=== PATIENT | male | born 1980 | race Hispanic/Latino ===

== ENCOUNTER 2023-04-02 11:20 | Inpatient (IN) | payer MEDICAID, SELFPAY ==
[2023-04-02] VITALS (21 sets, daily range): BP systolic 102–139; BP diastolic 67–88; PULSE 102–144; RESP 16–30; TEMP 36.1–39.5; O2SAT 82–100
--- NOTE | ~2023-04-02 | CT_ITS ---
Non-contrast CT scan of the Abdomen and Pelvis Clinical indication: Right flank pain Technique: 2.5 mm axial scans were obtained through the abdomen and pelvis without intravenous or or al contrast. Dose reduction technique was used on this scan by utilizing automated exposure control a nd iterative reconstruction technique. The dose-length product (DLP) was 620.95 mGy-cm. Findings: Images through the lung bases reveal no abnormalities. There is no evidence of renal or ureteral calculi. No hydronephrosis. Left ureteral stent in place, w ith mild fullness of left ureter. The liver, spleen, pancreas, gallbladder, and adrenals appear normal. There is no aortic aneurysm. There is no evidence of bowel obstruction. Images through the pelvis were performed. There is no evidence of ascites or lymphadenopathy. Mild ur inary bladder wall thickening present. Prostate gland is mildly enlarged. Impression: Left ureteral stent in place with mild fullness of left ureter. No radiopaque stones seen. Urinary bladder wall thickening, possibly cystitis. Correlate with urinalysis. Reviewed, dictated and finalized at [facility]. Impression: Left ureteral stent in place with mild fullness of left ureter. No radiopaque s tones seen. Urinary bladder wall thickening, possibly cystitis. Correlate with urinalysis.
[2023-04-02 12:50] LABS: Basophils Absolute Auto 0.1 K/mm3 (0.0-0.1); Basophils Percent Auto 0.3 % (0.2-1.2); Eosinophils Percent Auto 0.1 % (0-4.4); Hematocrit 45.2 % (42.0-52.0); Hemoglobin 15.5 g/dL (14.0-18.0); Immature Granulocyte Absolute 0.07 K/mm3 (0.00-0.031); Immature Granulocyte Percent A 0.4 % (0-0.5); Lymphocytes Absolute Auto 1.41 K/mm3 (0.9-3.2); Lymphocytes Percent Auto 8.6 % (18.3-44.2); Mean Corpuscular HGB Conc 34.3 g/dl (32-36); Mean Corpuscular Hemoglobin 31.8 pg (26-34); Mean Corpuscular Volume 92.6 fl (80-100); Mean Platelet Volume 9.6 fl (7.4-10.4); Monocytes Absolute Auto 0.8 K/mm3 (0.1-0.6); Monocytes Percent Auto 4.9 % (2.6-8.5); Neutrophils Absolute Auto 14.1 K/mm3 (1.3-6.7); Neutrophils Percent Auto 85.7 % (45.5-73.1); Platelet Count Result 285 k/mm3 (150-375); Red Blood Count 4.88 M/mm3 (4.6-6.20); Red Cell Distribution Width 11.3 % (11.5-14.5); White Blood Count 16.4 K/mm3 (4.5-10.0)
[2023-04-02] MEDS: SODIUM CHLORIDE 0.9% IV 1,000 ML 999 ML IV CONT (12:52)
[2023-04-02] MEDS: ONDANSETRON INJ 4 MG/2 ML VIAL IV PUSH (12:54)
[2023-04-02] MEDS: fentaNYL CITRATE INJ (*CRX) 100 MCG/2 ML VIAL 50 MCG IV PUSH (12:54)
[2023-04-02 12:59] LABS: Prothrombin Time 13.7 Seconds (11.1-14.7)
[2023-04-02 13:00] LABS: Partial Thromboplastin Time 28.6 SECONDS (22.3-36.8)
--- NOTE | 2023-04-02 13:05 | ED.ABDPAIN ---
HPI - Abdominal Pain General Chief Complaint: Recheck/Abnormal Lab/Rx Stated Complaint: post op comp Time Seen by Provider: 04/02/23 12:10 History of Present Illness HPI narrative: Pt had kidney stone and stent placement at [facility] about 10 days ago. Pt says he is out of antibiotics and pain meds and is having more pain in right flank and is running a fever now and has blood in urine. Pt is nauseated but not vomiting. Related Data Home Medications Medication Instructions Recorded Confirmed metformin 500 mg tablet 500 mg PO BID 04/02/23 04/02/23 Allergies Allergy/AdvReac Type Severity Reaction Status Date / Time No Known Allergies Allergy Verified 04/02/23 16:52 Review of Systems Review of Systems: All systems reviewed & are unremarkable except as noted in HPI and below PMFSH Family History Family History (Updated 04/02/23 @ 17:05 by Jaelyn Contreras RN) Other Unknown family medical history Social History Social History Smoking status: Never smoker Alcohol intake: current Drinks per week: 4 Substance use: never Substance use type: does not use Lack of Transportation: No Lack of Food: Never True Current Housing: I Have Housing Concerned About Future Housing: No Difficulty Paying Gas/Electric Bills: No Difficulty Paying for Meds: No Currently Unemployed: No Education: Associate Degree Difficulty w/ Childcare or Family Care: No Spiritual care concerns: No Exam Const: General: healthy appearing Nutritional Appearance: well nourished Orientation/consciousness: patient oriented x3 Limitations: no limitations HENMT: Head: normal to inspection Mouth: Yes moist mucous membranes Resp: Effort & Inspection: normal respiratory effort Auscultation: clear to auscultation bilaterally Cardio: Rate: regular rate Rhythm: regular rhythm GI: GI Palp: Yes Soft to palpation and Yes Tenderness to palpation present (GI) (r cva) Auscultation: normal bowel sounds : General: Yes CVA tenderness Back/Spine/Pelvis: Back: CVA tenderness Skin: General skin exam: normal color Rashes: no rashes Wounds: no wounds Neuro: General: patient oriented x3, moves all extremities, no meningeal signs, no focal motor deficits and CN's II-XI intact bilaterally Cranial nerves: Yes Nystagmus not present Speech: normal speech Extrem: General: normal to inspection and no clubbing, cyanosis or edema Psych: Mental Status: mental status grossly normal Affect: normal affect Attitude: cooperative Course Vital Signs Vital signs: Vital Signs Temperature 97.4 F L 04/02/23 11:21 Pulse Rate 102 H 04/02/23 11:21 Respiratory Rate 18 04/02/23 11:21 Blood Pressure 124/75 04/02/23 11:21 Pulse Oximetry 98 04/02/23 11:21 Temperature 103.1 F H 04/02/23 16:40 Pulse Rate 144 H 04/02/23 17:08 Respiratory Rate 22 H 04/02/23 16:40 Blood Pressure 102/67 04/02/23 16:40 Pulse Oximetry 96 04/02/23 16:40 Oxygen Delivery Room Air 04/02/23 17:03 MDM - Abdominal Pain MDM Narrative Medical decision making narrative: Pt had stent placed for stone in [facility] 10 days ago. Pt finished antibiotics and pain meds and last night developed flank pain again and fever and chills, WBC elevated UTI on UA, stent in place on CT. Discussed with Fabi Taylor and agrees to consult if needed. discussed with Ora Wagner agrees to admit Lab Data 04/02/23 12:40 04/02/23 12:40 Labs: Lab Results 04/02/23 04/02/23 Range/Units 12:40 13:01 WBC 16.4 H (4.5-10.0) K/mm3 RBC 4.88 (4.6-6.20) M/mm3 Hgb 15.5 (14.0-18.0) g/dL Hct 45.2 (42.0-52.0) % MCV 92.6 (80-100) fl MCH 31.8 (26-34) pg MCHC 34.3 (32-36) g/dl RDW 11.3 L (11.5-14.5) % Plt Count 285 (150-375) k/mm3 MPV 9.6 (7.4-10.4) fl Immature Gran % (Auto) 0.4 (0-0.5) % Neut % (Auto) 85.7 H (45.5-73.1) % Lymph % (Auto) 8.6 L (18.3-44.2) % Chambers
[2023-04-02 13:06] LABS: Lactic Acid Reflex 2.8 mmol/L (0.7-2.0)
[2023-04-02 13:07] LABS: Alanine Aminotransferase 45 U/L (6-50); Albumin Level 4.7 g/dL (3.5-5.1); Alkaline Phosphatase 88 U/L (38-126); Anion Gap 11 mmol/L (8-16); Aspartate Amino Transferase 31 U/L (17-59); Bilirubin,Total 1.4 mg/dL (0.2-1.3); Blood Urea Nitrogen 14 mg/dL (9-20); Calcium 9.3 mg/dL (8.4-10.2); Carbon Dioxide 27 mmol/L (22-30); Chloride 97 mmol/L (98-107); Estimated CRCL calculation 96 ml/min; Estimated Glomerular Filt Rate > 60; Glucose 124 mg/dL (65-110); Potassium 3.9 mmol/L (3.4-5.0); Sodium 135 mmol/L (137-145)
[2023-04-02] MEDS: cefTRIAXone 2 GM/NS 100 ML 2 GM/100 ML BAG IVPB (13:24)
[2023-04-02 13:29] LABS: Appearance Urine Turbid (Clear); Bacteria Urine 4+ /hpf; Bilirubin Urine Negative (Negative); Blood Urine 3+ (Negative); Color Urine Dark Yellow (Yellow); Glucose Urine UA Negative (Negative); Ketones Urine Negative (Negative); Leukocyte Esterase Ur 3+ LEU/UL (Negative); Need Manual Microscopic Reviewed; Nitrate Urine Positive (Negative); Protein Urine 3+ mg/dL (Negative); RBC Urine >100 /hpf (0-2); Specific Grav Ur 1.022 (1.001-1.035); Squamous Epithelial Cell Urine None seen /hpf (Few); WBC Urine >100 /hpf; pH Urine 5.5 (5.0-9.0)
[2023-04-02 13:30] LABS: Add Urine Microscopic? YES
[2023-04-02] MEDS: SODIUM CHLORIDE 0.9% IV 2,800 ML/1,000 ML BAG 999 ML IV CONT ×2 (13:57→16:00)
[2023-04-02 14:09] LABS: CRP 7.6 mg/dL (<1.0)
[2023-04-02 15:45] LABS: Reflex Lactic Acid Yes or No Add Lactic
[2023-04-02] MEDS: ACETAMINOPHEN 500 MG TABLET 1000 MG PO (16:39)
--- NOTE | 2023-04-02 16:49 | ADMGEN ---
This patient, Demond Agee, was admitted to 3 [facility] Surg Room 312-01. Patient/family oriented to hospital policies and general routines including ID bracelet, bed and alarms, visiting hours, pain management, procedures, bathroom and other care routines, personal items, smoking policy, room service/diet, and visiting hours. Information on how to activate the Rapid Response Team has been discussed. Patient/Family are encouraged to report perceived risks to care and to ask questions if they do not understand what they are told or what they should do.
[2023-04-02 18:00] LABS: Lactic Acid 2.8 mmol/L (0.7-2.0)
[2023-04-02] MEDS: LACTATED RINGERS 1,000 ML 100 ML IV CONT (20:38)
[2023-04-02 21:42] LABS: Lactic Acid Reflex 2.4 mmol/L (0.7-2.0)
[2023-04-02 22:47] LABS: Hemoglobin A1C 6.5 % (<5.7)
[2023-04-03] VITALS (9 sets, daily range): BP systolic 101–118; BP diastolic 63–73; PULSE 79–112; RESP 14–20; TEMP 36.2–37.9; O2SAT 96–99
--- NOTE | 2023-04-03 | PM.IMHP ---
H&P: HPI History of Present Illness Date/Time: 04/03/23 00:00 Chief Complaint: Dysuria Narrative: 42 y/o M presents here with dysuria, hematuria, flank pain, and fever with PMH of recent renal calculi removal with stent placement 10 days ago, DM and HLD. Patient presents here with flank pain, fever, nausea, and dysuria starting last night. Recent renal calculi removal with subsequent stent placement at [facility] in [facility] 10 days ago. Since procedure patient has continued to have painless hematuria until last night. Endorses fatigue and lower abdominal pain when it is pressed. Denies diarrhea. Review of Systems Review of Systems: All systems reviewed & are unremarkable except as noted in HPI and below PMFSH Past Medical History Medical History (Updated 04/03/23 @ 00:08 by Ora Wagner APRN) History of renal stone HLD (hyperlipidemia) HTN (hypertension) Surgical History Surgical History (Updated 04/03/23 @ 00:08 by Ora Wagner APRN) History of renal stent Family History Family History (Updated 04/03/23 @ 00:09 by Ora Wagner APRN) Father Cancer of kidney Diabetes mellitus Mother Diabetes mellitus Social History Social History (Updated 04/03/23 @ 00:09 by Ora Wagner APRN) Social History: Surrogate decision maker: Crystal Cook, . Smoking status: Never smoker Alcohol intake: current Drinks per week: 4 Substance use: never Substance use type: does not use Lack of Transportation: No Lack of Food: Never True Current Housing: I Have Housing Concerned About Future Housing: No Difficulty Paying Gas/Electric Bills: No Difficulty Paying for Meds: No Currently Unemployed: No Education: Associate Degree Difficulty w/ Childcare or Family Care: No Spiritual care concerns: No Meds Home Medications and Allergies Home Medications Medication Instructions Recorded Confirmed Type metformin 500 mg tablet 500 mg PO BID 04/02/23 04/02/23 History Allergies Allergy/AdvReac Type Severity Reaction Status Date / Time No Known Allergies Allergy Verified 04/02/23 16:52 Vital Signs Vital Signs - 24 hr 04/02/23 11:21 04/02/23 12:28 04/02/23 12:29 Temperature 97.4 F L Pulse Rate 102 H 120 H 119 H Respiratory Rate 18 16 20 Blood Pressure 124/75 118/79 Pulse Oximetry 98 99 100 Oxygen Delivery 04/02/23 12:30 04/02/23 12:32 04/02/23 12:45 Temperature Pulse Rate 114 H 118 H 123 H Respiratory Rate 16 25 H 25 H Blood Pressure 128/84 Pulse Oximetry 99 99 98 Oxygen Delivery 04/02/23 12:47 04/02/23 13:11 04/02/23 13:12 Temperature Pulse Rate 119 H 124 H 124 H Respiratory Rate 24 H 19 28 H Blood Pressure 130/81 138/81 Pulse Oximetry 97 82 L 98 Oxygen Delivery 04/02/23 13:15 04/02/23 13:16 04/02/23 16:40 Temperature 103.1 F H Pulse Rate 127 H 128 H 135 H Respiratory Rate 25 H 27 H 22 H Blood Pressure 128/88 102/67 Pulse Oximetry 94 94 96 Oxygen Delivery 04/02/23 13:31 04/02/23 14:01 04/02/23 14:16 Temperature Pulse Rate 131 H 130 H 129 H Respiratory Rate 28 H 20 22 H Blood Pressure 139/84 133/74 112/74 Pulse Oximetry 94 96 95 Oxygen Delivery 04/02/23 14:31 04/02/23 14:46 04/02/23 16:31 Temperature 103.1 F H Pulse Rate 130 H 128 H 136 H Respiratory Rate 25 H 30 H 23 H Blood Pressure 119/74 119/82 102/67 Pulse Oximetry 98 97 98 Oxygen Delivery 04/02/23 17:03 04/02/23 17:08 04/02/23 20:38 Temperature Pulse Rate 144 H 109 H Respiratory Rate Blood Pressure Pulse Oximetry Oxygen Delivery Room Air 04/02/23 21:16 Temperature 96.9 F L Pulse Rate 108 H Respiratory Rate 16 Blood Pressure 102/73 Pulse Oximetry 97 Oxygen Delivery Exam Const: General: comfortable and no acute distress HENMT: Face/Nose/Sinus: Normal nares present Mouth: Yes moist mucous membranes Eyes: General: appearance normal, both eyes and al
[2023-04-03] MEDS: ACETAMINOPHEN 325 MG TABLET 650 MG PO ×3 (00:46→17:23)
[2023-04-03] MEDS: LACTATED RINGERS 1,000 ML 100 ML IV CONT ×2 (06:33→20:14)
[2023-04-03 06:52] LABS: Basophils Absolute Auto 0.1 K/mm3 (0.0-0.1); Basophils Percent Auto 0.4 % (0.2-1.2); Eosinophils Absolute Auto 0.1 K/mm3 (0-0.3); Eosinophils Percent Auto 0.7 % (0-4.4); Hemoglobin 12.8 g/dL (14.0-18.0); Immature Granulocyte Absolute 0.06 K/mm3 (0.00-0.031); Immature Granulocyte Percent A 0.4 % (0-0.5); Lymphocytes Percent Auto 10.5 % (18.3-44.2); Mean Corpuscular HGB Conc 33.7 g/dl (32-36); Mean Corpuscular Hemoglobin 31.5 pg (26-34); Mean Corpuscular Volume 93.6 fl (80-100); Mean Platelet Volume 9.6 fl (7.4-10.4); Neutrophils Absolute Auto 11.6 K/mm3 (1.3-6.7); Platelet Count Result 230 k/mm3 (150-375); Red Blood Count 4.06 M/mm3 (4.6-6.20); Red Cell Distribution Width 11.5 % (11.5-14.5); White Blood Count 14.3 K/mm3 (4.5-10.0)
[2023-04-03 06:59] LABS: Lactic Acid Reflex 1.4 mmol/L (0.7-2.0)
[2023-04-03 07:05] LABS: Alanine Aminotransferase 34 U/L (6-50); Albumin Level 3.5 g/dL (3.5-5.1); Alkaline Phosphatase 63 U/L (38-126); Anion Gap 5 mmol/L (8-16); Aspartate Amino Transferase 23 U/L (17-59); Blood Urea Nitrogen 10 mg/dL (9-20); Calcium 8.6 mg/dL (8.4-10.2); Carbon Dioxide 27 mmol/L (22-30); Chloride 106 mmol/L (98-107); Estimated CRCL calculation 118 ml/min; Estimated Glomerular Filt Rate > 60; Glucose 136 mg/dL (65-110); Potassium 3.4 mmol/L (3.4-5.0); Sodium 138 mmol/L (137-145)
[2023-04-03 07:44] LABS: Glucose Point of Care 138 mg/dl (65-105)
[2023-04-03] MEDS: metFORMIN HCL 500 MG TABLET PO ×2 (08:19→17:23)
[2023-04-03] MEDS: PHENAZOPYRIDINE HCL 100 MG TABLET 200 MG PO ×3 (08:19→17:23)
--- NOTE | 2023-04-03 08:19 | WPDURCON ---
Assessment and Plan Assessment and plan (1) Acute pyelonephritis: Code(s): N10 - Acute pyelonephritis Status: Acute Assessment and Plan: Continue Ceftriaxone, tailor to culture sensitivities. Stent is in place and draining, reviewed images with Dr. Oneil. Ok to f/u with [facility] Urologist to have stent removed once infection resolves as there is no stone present on CT. No further evaluation from Urology at this time and no need for surgical intervention at this time. Urology Consult Note HPI Date Seen: 04/03/23 Time Seen: 09:00 Requesting Physician: Horacio Salvador MD Primary Care Provider: PHYSICIAN NOT ON STAFF Consult Narrative Reason for consult: Ureteral Stent/Uroesepsis Narrative: Demond Agee is a 42 year old male who presented with worsening left flank pain that started 3 days ago, with new onset of fever now and has blood in urine. Pt is nauseated but not vomiting. He is s/p stent placement for a stone at [facility] in [place] about 10 days ago and he is off antibiotics and pain medications. He was given Cipro and Hydrocodone post operatively to take. CT scan in the ER shows ureteral stent in place with mild fullness of left ureter without stones present and bladder wall thickening. WBC 14.3, creatinine 0.80, UA is positive for UTI, urine culture is pending, blood cultures are growing gram negative bacilli. He remains on Ceftriaxone. He is being followed by [facility] urology. He states he had kidney stones 20 years ago but passed them and hasn't had surgery before. He states that today the pain is resolved after starting IV antibiotics and IV pain meds. Review of Systems Cardiovascular: Cardiovascular: Denies chest pain Respiratory: Respiratory: Reports no additional respiratory complaints Gastrointestinal: Gastrointestinal: Denies abdominal pain, Denies nausea and Denies vomiting Genitourinary: Genitourinary: Denies hematuria, Denies genital pain, Denies dysuria, Denies flank pain, Denies urinary frequency, Denies urinary hesitancy and Denies urinary urgency [facility] Past Medical History Medical History History of renal stone HLD (hyperlipidemia) HTN (hypertension) Surgical History Surgical History History of renal stent Family History Family History Father Cancer of kidney Diabetes mellitus Mother Diabetes mellitus Social History Social History Social History: Surrogate decision maker: Crystal Cook, . Smoking status: Never smoker Alcohol intake: current Drinks per week: 4 Substance use: never Substance use type: does not use Lack of Transportation: No Lack of Food: Never True Current Housing: I Have Housing Concerned About Future Housing: No Difficulty Paying Gas/Electric Bills: No Difficulty Paying for Meds: No Currently Unemployed: No Education: Associate Degree Difficulty w/ Childcare or Family Care: No Spiritual care concerns: No Meds Home Medications and Allergies Home Medications Medication Instructions Recorded Confirmed Type metformin 500 mg tablet 500 mg PO BID 04/02/23 04/02/23 History Allergies Allergy/AdvReac Type Severity Reaction Status Date / Time No Known Allergies Allergy Verified 04/02/23 16:52 Vital Signs Vital Signs - 24 hr 04/02/23 11:21 04/02/23 12:28 04/02/23 12:29 Temperature 97.4 F L Pulse Rate 102 H 120 H 119 H Respiratory Rate 18 16 20 Blood Pressure 124/75 118/79 Pulse Oximetry 98 99 100 Oxygen Delivery 04/02/23 12:30 04/02/23 12:32 04/02/23 12:45 Temperature Pulse Rate 114 H 118 H 123 H Respiratory Rate 16 25 H 25 H Blood Pressure 128/84 Pulse Oximetry 99 99 98 Oxygen Delivery 04/02/23 12:47 04/02/23 13:11 04/02/23 13
--- NOTE | 2023-04-03 09:36 | PM.SD2 ---
Same Day Admit/Disch: HPI History of Present Illness Chief complaint: pyelonephritis Narrative: Demond Agee is a 42 year old male who presented with worsening left flank pain that started 3 days ago, with new onset of fever now and has blood in urine. Pt is nauseated but not vomiting. He is s/p stent placement for a stone at [facility] in [place] about 10 days ago and he is off antibiotics and pain medications. He was given Cipro and Hydrocodone post operatively to take. CT scan in the ER shows ureteral stent in place with mild fullness of left ureter without stones present and bladder wall thickening. WBC 14.3, creatinine 0.80, UA is positive for UTI, urine culture is pending, blood cultures are growing gram negative bacilli. He remains on Ceftriaxone. He is being followed by [facility] urology. He states he had kidney stones 20 years ago but passed them and hasn't had surgery before. He states that today the pain is resolved after starting IV antibiotics and IV pain meds. [facility] Past Medical History Medical History History of renal stone HLD (hyperlipidemia) HTN (hypertension) Surgical History Surgical History History of renal stent Family History Family History Father Cancer of kidney Diabetes mellitus Mother Diabetes mellitus Social History Social History Social History: Surrogate decision maker: Crystal Cook, . Smoking status: Never smoker Alcohol intake: current Drinks per week: 4 Substance use: never Substance use type: does not use Lack of Transportation: No Lack of Food: Never True Current Housing: I Have Housing Concerned About Future Housing: No Difficulty Paying Gas/Electric Bills: No Difficulty Paying for Meds: No Currently Unemployed: No Education: Associate Degree Difficulty w/ Childcare or Family Care: No Spiritual care concerns: No Same Day Admit/Disch: Med Pre-admit Medications Home Medications Medication Instructions Recorded Confirmed Type metformin 500 mg tablet 500 mg PO BID 04/02/23 04/02/23 History Review of Systems Review of Systems All systems reviewed & are unremarkable except as noted in HPI and below Exam Const: General: cooperative and comfortable Orientation/consciousness: patient oriented x3 HENMT: Head: normal to inspection Mouth: Yes Normal oral and palatal mucosa present Eyes: General: appearance normal, both eyes and all related structures Resp: Effort & Inspection: normal respiratory effort Auscultation: clear to auscultation bilaterally Cardio: Rate: regular rate Rhythm: regular rhythm Heart sounds: S1 normal heart sound present and S2 normal heart sound present GI: GI Palp: Yes Soft to palpation Auscultation: normal bowel sounds Skin: General skin exam: normal color and no rashes or lesions noted Neuro: General: patient oriented x3, no focal motor deficits and CN's II-XI intact bilaterally Speech: normal speech Extrem: General: full ROM Psych: Appearance: grossly normal DS: Data Data Completed and Pending Labs on day of discharge: Labs from last 24 hours 04/03/23 04/03/23 04/02/23 07:18 06:27 20:49 WBC 14.3 H RBC 4.06 L Hgb 12.8 L Hct 38.0 L MCV 93.6 MCH 31.5 MCHC 33.7 RDW 11.5 Plt Count 230 MPV 9.6 Immature Gran % (Auto) 0.4 Neut % (Auto) 81.0 H Lymph % (Auto) 10.5 L [place] % (Auto) 7.0 Eos % (Auto) 0.7 Baso % (Auto) 0.4 Lymph # (Auto) 1.50 [place] # (Auto) 1.0 H Eos # (Auto) 0.1 Baso # (Auto) 0.1 Abs Immat Gran (auto) 0.06 H Absolute Neuts (auto) 11.6 H Absolute Nucleated RBC 0.0 Nucleated RBC % 0.0 PT INR APTT Sodium 138 Potassium 3.4 Chloride 106 Carbon Dioxide 27 Anion
[2023-04-03 11:30] LABS: Glucose Point of Care 150 mg/dl (65-105)
[2023-04-03] MEDS: cefTRIAXone 2 GM/NS 100 ML 2 GM/100 ML BAG IVPB (12:11)
[2023-04-03 16:47] LABS: Glucose Point of Care 140 mg/dl (65-105)
[2023-04-03] MEDS: ONDANSETRON INJ 4 MG/2 ML VIAL IV PUSH (17:23)
[2023-04-03 20:59] LABS: Glucose Point of Care 156 mg/dl (65-105)
[2023-04-04] VITALS (7 sets, daily range): BP systolic 117–127; BP diastolic 71–87; PULSE 73–107; RESP 16; TEMP 36.2–36.4; O2SAT 96–98
[2023-04-04] MEDS: ACETAMINOPHEN 325 MG TABLET 650 MG PO ×4 (05:36→21:30)
[2023-04-04] MEDS: LACTATED RINGERS 1,000 ML 100 ML IV CONT ×3 (05:41→20:26)
[2023-04-04 07:55] LABS: Glucose Point of Care 148 mg/dl (65-105)
[2023-04-04] MEDS: ONDANSETRON INJ 4 MG/2 ML VIAL IV PUSH (08:42)
[2023-04-04] MEDS: metFORMIN HCL 500 MG TABLET PO ×2 (08:42→16:47)
[2023-04-04] MEDS: PHENAZOPYRIDINE HCL 100 MG TABLET 200 MG PO ×3 (08:42→16:47)
[2023-04-04] MEDS: cefTRIAXone 2 GM/NS 100 ML 2 GM/100 ML BAG IVPB (08:42)
--- NOTE | 2023-04-04 10:28 | PM.IMPN ---
Progress Note: A&P Assessment and Plan (1) Acute pyelonephritis: Code(s): N10 - Acute pyelonephritis Status: Acute Assessment and Plan: Recent stone removal with stent placement at [facility] 10 days ago. Painless hematuria since procedure. Now having flank pain, fever, nausea. Symptoms started last night. Fever of 103.1F @16:40. WBC 16.4, Neut% 85.7 (H) UA: turbid, 3+ protein, 3+ blood, nitrate positive, 3+ leuk, greater than 100 RBC, greater than 100 WBC, 4+ bacteria fluid resuscitation initiated in the ED -30 mL/kg of NS, maintenance fluids continued LR 100 mL/hr ceftriaxone IV Q24H CT abdomen and pelvis impression - left ureteral stent in place with mild fullness of left ureter. No radiopaque stone seen. Urinary bladder wall thickening, possible cystitis. Correlate with UA. consult to Urology. No further interventions Zofran p.r.n. for nausea morphine 2 mg PRN for pain TYL p.r.n. for pain or fever monitor daily labs-CBC and CMP in a.m. Gram-negative bacilli in blood in urine. Sensitivity pending Subjective Date/time seen: 04/04/23 10:28 Interval history: Stable. No complaints Review of Systems Review of Systems: All systems reviewed & are unremarkable except as noted in HPI and below Exam Const: General: comfortable and no acute distress HENMT: Face/Nose/Sinus: Normal nares present Mouth: Yes moist mucous membranes Eyes: General: appearance normal, both eyes and all related structures Sclera: sclerae normal Pupils: Equal, round and reactive pupils present Resp: Auscultation: clear to auscultation bilaterally Other: tachypnea. Cardio: Rate: tachycardic Rhythm: regular rhythm Other: S1 and S2 present without murmur, rub, ectopy GI: GI Palp: Yes Soft to palpation and Yes Tenderness to palpation present (GI) Auscultation: normal bowel sounds Other: tenderness to RLQ, suprapubic area Urinary Catheter: Urinary Catheter: urine dark Skin: General skin exam: normal color and no rashes or lesions noted Wounds: no wounds Neuro: Speech: normal speech Motor exam (neuro): 5/5 motor strength present throughout Sensory Exam: normal sensation Extrem: General: normal to inspection Psych: Mental Status: mental status grossly normal Affect: normal affect Other: A/Ox4 Objective Data Vital Signs Vital Signs: Vital Signs - 24 hr 04/03/23 14:00 04/03/23 12:00 04/03/23 16:00 Temperature 100.2 F H Pulse Rate 97 98 112 H Respiratory Rate 20 Blood Pressure 117/70 Pulse Oximetry 99 Oxygen Delivery 04/03/23 20:00 04/03/23 20:54 04/03/23 20:00 Temperature 97.1 F L Pulse Rate 95 102 H Respiratory Rate 16 Blood Pressure 118/73 Pulse Oximetry 96 Oxygen Delivery Room Air 04/04/23 00:00 04/04/23 04:00 04/04/23 04:53 Temperature 97.1 F L Pulse Rate 92 86 107 H Respiratory Rate 16 Blood Pressure 123/71 Pulse Oximetry 97 Oxygen Delivery Intake/Output Intake/Output: Intake & Output 04/01/23 04/02/23 04/03/23 04/04/23 23:59 23:59 23:59 23:59 Intake Total 3340 / 3340 4460 / 4460 1120 / 1120 Balance 3340 / 3340 4460 / 4460 1120 / 1120 Meds/Results Medications: Active Medications Generic Name Dose Route Start Last Admin Trade Name Freq PRN Reason Stop Dose Admin Acetaminophen 650 mg 04/02/23 18:37 04/04/23 05:36 Acetaminophen 325 Mg Tablet PO 650 mg Q4H PRN Administration Mild Pain (1-3) or Fever Dextrose 12.5 gm 04/03/23 00:22 Dextrose 50% 25 Gm/50 Ml Syringe IV PUSH PRN PRN Hypoglycemia Protocol Enoxaparin Sodium 40 mg 04/03/23 09:00 04/04/23 08:43 Enoxaparin 40 Mg/0.4 Ml Syringe SUB-Q Not Given DAILY MAX Glucagon 1 mg 04/03/23 00:22 Glucagon For Inj 1 Mg Vial IM PRN PRN Hypoglycemia Protocol Glucose 15 gm 04/03/23 00:22 Glucose Oral Gel 15 Gm Of Glucse In 37.5 Gm Tube PO
[2023-04-04 11:49] LABS: Glucose Point of Care 160 mg/dl (65-105)
[2023-04-04 16:38] LABS: Glucose Point of Care 127 mg/dl (65-105)
[2023-04-04 20:56] LABS: Glucose Point of Care 181 mg/dl (65-105)
[2023-04-05 04:42] VITALS: BP 121/77; PULSE 90; RESP 16; TEMP 36.3; O2SAT 97
[2023-04-05 07:59] LABS: Glucose Point of Care 158 mg/dl (65-105)
[2023-04-05] MEDS: ACETAMINOPHEN 325 MG TABLET 650 MG PO (08:45)
[2023-04-05] MEDS: metFORMIN HCL 500 MG TABLET PO (08:46)
[2023-04-05] MEDS: cefTRIAXone 2 GM/NS 100 ML 2 GM/100 ML BAG IVPB (08:46)
[2023-04-05] MEDS: PHENAZOPYRIDINE HCL 100 MG TABLET 200 MG PO ×2 (08:46→11:34)
[2023-04-05 11:29] LABS: Glucose Point of Care 156 mg/dl (65-105)
--- NOTE | 2023-04-05 13:34 | PM.DS ---
DS: Admitting Diagnosis Discharge Date 04/05/2023 Admitting Diagnosis 04/03/2023 DS: Discharge Diagnosis Discharge Diagnosis (1) Acute pyelonephritis: Code(s): N10 - Acute pyelonephritis Status: Acute Assessment and Plan: Recent stone removal with stent placement at [facility] in [place] 10 days ago. Painless hematuria since procedure. Now having flank pain, fever, nausea. Symptoms started last night. Fever of 103.1F @16:40. WBC 16.4, Neut% 85.7 (H) UA: turbid, 3+ protein, 3+ blood, nitrate positive, 3+ leuk, greater than 100 RBC, greater than 100 WBC, 4+ bacteria fluid resuscitation initiated in the ED -30 mL/kg of NS, maintenance fluids continued LR 100 mL/hr ceftriaxone IV Q24H CT abdomen and pelvis impression - left ureteral stent in place with mild fullness of left ureter. No radiopaque stone seen. Urinary bladder wall thickening, possible cystitis. Correlate with UA. consult to Urology. Stent is in place and draining, reviewed images with Dr. Oneil. Ok to f/u with U Urologist to have stent removed once infection resolves as there is no stone present on CT. DS: Summary Hospital Course Hospital Course: 42 y/o M presents here with dysuria, hematuria, flank pain, and fever with PMH of recent renal calculi removal with stent placement 10 days ago, DM and HLD. Patient presents here with flank pain, fever, nausea, and dysuria starting last night.? Recent renal calculi removal with subsequent stent placement at [facility] in [facility] 10 days ago.? Since procedure patient has continued to have painless hematuria until last night. UC positive for ecoli pt ok to DC with augmentin and f/u with U Urologist to have stent removed once infection resolves as there is no stone present on CT. Time Spent with Patient Time attestation: Total time spent providing and/or coordinating discharge services:40 minutes on day of dc Exam Const: General: cooperative, comfortable and no acute distress Orientation/consciousness: patient oriented x3 Resp: Effort & Inspection: normal respiratory effort Auscultation: clear to auscultation bilaterally Other: tachypnea. Cardio: Rate: regular rate and tachycardic Rhythm: regular rhythm Heart sounds: S1 normal heart sound present and S2 normal heart sound present Other: S1 and S2 present without murmur, rub, ectopy GI: Auscultation: normal bowel sounds Other: tenderness to RLQ, suprapubic area Skin: General skin exam: normal color and no rashes or lesions noted Wounds: no wounds Neuro: General: patient oriented x3, no focal motor deficits and CN's II-XI intact bilaterally Cranial nerves: Yes Equal, round and reactive pupils present Speech: normal speech Motor exam (neuro): 5/5 motor strength present throughout Sensory Exam: normal sensation Psych: Appearance: grossly normal Mental Status: mental status grossly normal Affect: normal affect Other: A/Ox4 DS: Data Data Completed and Pending Labs on day of discharge: Labs from last 24 hours 04/05/23 04/05/23 04/04/23 11:25 07:53 20:52 POC Capillary Glucose 156 H 158 H 181 H 04/04/23 16:35 POC Capillary Glucose 127 H Discharge Plan Discharge Attending physician on discharge: Anitha Diallo Consulting providers: Max Oneil Discharging Clinician: Horacio Salvador Anticipated Discharge Date/Time: 04/03/23 09:37 Patient Disposition: Home, Self-Care Activity: no preference Diet: heart healthy Discharge Instructions: Drink plenty of fluids complete ABX course Stent is in place and draining Ok to f/u with U Urologist to have stent removed once infection resolves as there is no stone present on CT. U urology in 2 weeks time Patient Instructions: Antibiotic Form Stand Alone Forms: General Discharge Information Follow-up/Referrals: PHYSICIAN NOT ON STAFF,NONSTAFF [Primary Care Provi
== END 2023-04-05 14:15 | disposition home or self-care (01) | DRG 463 ==
LOC: ANHED 14:23 → ANH3MEDSUR 15:02
PROVIDERS: Hospitalist; Student in an Organized Health Care Education/Training Program; Admitting Provider Internal Medicine; Emergency Provider Emergency Medicine; PCP Registered Nurse; Visit Provider Family Medicine
DX: N10 Acute pyelonephritis (principal); B96.20 Unspecified Escherichia coli [E. coli] as the cause of diseases classified elsewhere; E11.9 Type 2 diabetes mellitus without complications; E78.5 Hyperlipidemia, unspecified; I10 Essential (primary) hypertension; R31.9 Hematuria, unspecified; Z96.0 Presence of urogenital implants; Z79.84 Long term (current) use of oral hypoglycemic drugs
CPT/HCPCS: 36415; 74176; 80053; 81001; 82948; 83036; 83605; 85025; 85610; 85730; 86140; 87040; 87077; 87086; 87186; 96365; 96375; 99285; A9270; J0696; J2405; J3010; J7030; J7120